=== PATIENT | male | born 2000 | race Caucasian/White ===

== ENCOUNTER 2025-06-21 08:21 | Emergency (ER) | payer OTHER, SELFPAY ==
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
[2025-06-21 09:24] VITALS: BP 132/76; PULSE 91; RESP 20; TEMP 36.6; O2SAT 98
[2025-06-21] MEDS: LIDOCAINE 5% PATCH 1 PATCH TRANSDERM (09:30)
[2025-06-21] MEDS: KETOROLAC 30 MG/ML VIAL (*BKC) 15 MG IM (09:33)
--- OUTSIDE RECORDS SUMMARY | 2025-06-21 09:57 | XMS_ITS | Clinical Summary ---
Author Organization [facility] [employer] Address [address] 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 This disclosure is being madepursuant to the Care Everywhere program and may not contain all information available regarding this patient. Last updated 18.[facility] [employer] Allergies Active Allergy Reactions Criticality Noted Date Comments Shellfish-Derived Products Anaphylaxis,Vomiting High 03/18/2021 Tree Nuts Anaphylaxis High 03/18/2021 Medications * Be aware that medications may not be up to date on this document. Alwaysverify current medications with the patient. dupilumab (Dupixent) 300 MG/2ML prefilled pen Inject 2 mL subcutaneously every 14 days Active triamcinolone acetonide (Kenalog) 0.1 % ointmentIndica tions:Other allergic contact dermatitis Apply to back twice daily prior to patch testing. Stop one week before patch testing. 30 days supply. 454 g 4 Active Family History Medical History Relation Name Comments Asthma Maternal Grandmother Cancer - Skin, Non Melanoma Maternal Grandmother Psoriasis Maternal Grandmother Asthma Mother Asthma Sister Eczema Sister Allergy (Severe) Neg Hx Arthritis - Osteo Neg Hx Arthritis - Rheumatoid Neg Hx CAD (Coronary Artery Disease) Neg Hx CVA Neg Hx Cancer Neg Hx Cancer - Breast Neg Hx Cancer - Skin, Melanoma Neg Hx Hemophilia Neg Hx Hypertension Neg Hx Migraine Neg Hx Rashes/Skin Problems Neg Hx Seizures Neg Hx Thyroid Disease Neg Hx Relation Name Status Comments Maternal Grandmother Mother Sister Social History Tobacco Use Types Packs/Day Years Used Date Smoking Tobacco: Former Cigarettes Q uit: 2017 Passive Smoke Exposure: Never Tobacco Cessation:Counseling Given: Not Answered Alcohol Use Standard Drinks/Week Comments Yes 0 (1 standard drink = 0.6 oz pur e alcohol) 3 Sex and Gender Information Value Date Recorded Sex Assigned at Not on file 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 Gender Identity Not on file Sexual Orientation Not on file Plan of Treatment Health Maintenance Due Date Last Done Comments HIV SCREENING 2013 HPV VACCINE (1 - Male 3-dose series) 2013 HEPATITIS C SCREENING 08/11/2016 DTAP/TDAP/TD VACCINES (1 - Tdap) 2017 HEPATITIS B VACCINE (1 of 3 - 19+ 3-dose series) 2017 DEPRESSION SCREENING 08/18/2024 COVID-19 VACCINE (1 - 2023-2 5 season) 2025 INFLUENZA VACCINE (#1) 2025 ZOSTER VACCINE (1 of 2) 2048 HIB VACCINE Aged Out No longer eligi ble based on patient's age to complete this topic MENINGOCOCCAL (Group B) VACC INE SHARED DECISION-MAKING Aged Out No longer eligibl e based on patient's age to complete this topic MENINGOCOCCAL GROUPS A/C/Y/W VACCINE Aged Out No longer eligible b ased on patient's age to complete this topic PNEUMOCOCCAL VACCINE Aged Out No long er eligible based on patient's age to complete this topic Insurance [facility]
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
== END 2025-06-21 11:08 | disposition home or self-care (01) ==
PROVIDERS: Emergency Provider Emergency Medicine
DX: S20.212A Contusion of left front wall of thorax, initial encounter (principal); W51.XXXA Accidental striking against or bumped into by another person, initial encounter
CPT/HCPCS: 71101; 96372; 99283; A9270; J1885